=== PATIENT | male | born 1965 | race American Indian/Alaskan Native ===

== ENCOUNTER 2020-04-17 13:06 | Inpatient (IN) | payer OTHER ==
[2020-04-17] MEDS ORDERED: ONDANSETRON 4 MG/2 ML INJ IV ONE (13:58)
[2020-04-17] MEDS ORDERED: MORPHINE 2 MG/1 ML INJ IV ONE (13:58)
--- NOTE | 2020-04-17 14:39 | Emergency Department Report ---
ED General Adult HPI - General Chief complaint: Back Pain/Injury Stated complaint: FALL INJURY/BACK PAIN Time Seen by Provider: 04/17/20 13:44 Source: patient Mode of arrival: Stretcher Limitations: No Limitations - History of Present Illness Initial comments: This is a 55-year-old man with a history of CHF and hypertension. He states he tripped over his cat. He states he missed 1 dose of his medicine this morning. He fell onto his back and complains of pain in his left posterior some scapular chest region. He denies any vertebral pain both of the cervical and thoracic spine. He does not complain of lower back pain or flank pain at all. Patient is dyspneic on arrival. He complains of moderately severe pain. He is is very reticent to provide any historical information or even answer questions. -: Sudden Location: chest (Left posterior as above indicated) Radiation: non-radiation Quality: aching Consistency: constant Improves with: none Worsens with: none Associated Symptoms: cough, shortness of breath Treatments Prior to Arrival: none - Related Data Allergies Allergy/AdvReac Type Severity Reaction Status Date / Time Penicillins Allergy Anaphylaxis Verified 04/17/20 14:56 ED Review of Systems ROS: Stated complaint: FALL INJURY/BACK PAIN Other details as noted in HPI Comment: Unobtainable due to pts medical conditions (Very limited secondary to lack of patient cooperation) Constitutional: denies: chills, fever Respiratory: denies: cough, shortness of breath Cardiovascular: denies: chest pain Endocrine: no symptoms reported Gastrointestinal: denies: abdominal pain Musculoskeletal: as per HPI Skin: denies: rash, lesions Neurological: denies: headache ED Past Medical Hx - Past Medical History Previous Medical History?: Yes Hx Hypertension: Yes - Social History Smoking Status: Current Some Day Smoker Substance Use Type: None ED Physical Exam - General Limitations: Physical Limitation General appearance: anxious, other (Poorly cooperative) - Head Head exam: Present: atraumatic - Eye Eye exam: Absent: scleral icterus - ENT ENT exam: Present: mucous membranes moist - Neck Neck exam: Absent: tenderness, meningismus - Respiratory Respiratory exam: Present: rhonchi - Cardiovascular Cardiovascular Exam: Present: tachycardia - GI/Abdominal GI/Abdominal exam: Present: soft, normal bowel sounds. Absent: distended, tenderness, guarding, rebound, rigid - Extremities Exam Extremities exam: Present: other (1-2+ bilateral pretibial edema) - Back Exam Back exam: Present: tenderness. Absent: CVA tenderness (R), CVA tenderness (L), muscle spasm, paraspinal tenderness, vertebral tenderness - Neurological Exam Neurological exam: Present: CN II-XII intact (As testable). Absent: motor sensory deficit - Psychiatric Psychiatric exam: Present: agitated, anxious - Skin Skin exam: Present: warm, dry, intact, normal color. Absent: rash ED Course Vital Signs 04/17/20 04/17/20 04/17/20 13:29 14:14 14:15 Temperature 97.8 F Pulse Rate 101 H 103 H Respiratory 18 18 Rate Blood Pressure 170/113 187/130 Blood Pressure [Right] O2 Sat by Pulse 98 Oximetry 04/17/20 15:08 Temperature Pulse Rate Respiratory 18 Rate Blood Pressure Blood Pressure 156/110 [Right] O2 Sat by Pulse 99 Oximetry - Reevaluation(s) Reevaluation #1: Blood cultures are ordered. Patient given empiric antibiotics. Labetalol 10 mg now x2. Lasix 40 IV. His D-dimer is quite elevated. His proBNP is quite elevated. His blood pressure is quite elevated. I think this is a hypertensive emergency with CHF and that Covid is not unlikely. Isolation was ordered. I will defer further work-up to the hospitalist staff. Anticoagulation protocol and the use of steroids will be left to the discretion of the hospitalist. 04/17/20 15:09 04/17/20 15:10 ED Medical Decision Making - Lab Data Result diagrams: 04/17/20 14:18 04/17/20 14:18 Laboratory Results - last 24 hr 04/17/20 04/17/20 04/17/20 14:18 14:18 14:18 WBC 12.5 H RBC 3.93 Hgb 13.3 Hct 40.3 MCV 103 H MCH 34 H MCHC 33 RDW 14.4 Plt Count 223 Lymph % (Auto) 7.6 L [place] % (Auto) 4.0 Eos % (Auto) 0.4 Baso % (Auto) 1.1 Lymph # (Auto) 0.9 L [place] # (Auto) 0.5 Eos # (Auto) 0.0 Baso # (Auto) 0.1 Seg Neutrophils % 86.9 H Seg Neutrophils # 10.9 H PT 13.3 INR 1.03 APTT 29.2 D-Dimer 1815.52 H Sodium 139 Potassium 4.5 Chloride 106.1 Carbon Dioxide 23 Anion Gap 14 BUN 9 Creatinine 0.8 Estimated GFR > 60 BUN/Creatinine Ratio 11 Glucose 118 H Lactic Acid Calcium 9.1 Magnesium 2.10 Lactate Dehydrogenase Total Creatine Kinase 200 H CK-MB (CK-2) 4.2 H CK-MB (CK-2) Rel Index 2.1 Troponin T < 0.010 C-Reactive Protein NT-Pro-B Natriuret Pep Urine Color Urine Turbidity Urine pH Ur Specific [place] Urine Protein Urine Glucose (UA) Urine Ketones Urine Blood Urine Nitrite Urine Bilirubin Urine Urobilinogen Ur Leukocyte Esterase Urine WBC (Auto) Urine RBC (Auto) Urine Opiates Screen Urine Methadone Screen Ur Barbiturates Screen Ur Phencyclidine Scrn Ur Amphetamines Screen U Benzodiazepines Scrn Urine Cocaine Screen 04/17/20 04/17/20 04/17/20 14:18 14:18 14:23 WBC RBC Hgb Hct MCV MCH MCHC RDW Plt Count Lymph % (Auto) [place] % (Auto) Eos % (Auto) Baso % (Auto) Lymph # (Auto) [place] # (Auto) Eos # (Auto) Baso # (Auto) Seg Neutrophils % Seg Neutrophils # PT INR APTT D-Dimer Sodium Potassium Chloride Carbon Dioxide Anion Gap BUN Creatinine Estimated GFR BUN/Creatinine Ratio Glucose Lactic Acid 2.10 H* Calcium Magnesium Lactate Dehydrogenase 337 H Total Creatine Kinase CK-MB (CK-2) CK-MB (CK-2) Rel Index Troponin T C-Reactive Protein 0.10 NT-Pro-B Natriuret Pep 3899 H Urine Color Urine Turbidity Urine pH Ur Specific [place] Urine Protein Urine Glucose (UA) Urine Ketones Urine Blood Urine Nitrite Urine Bilirubin Urine Urobilinogen Ur Leukocyte Esterase Urine WBC (Auto) Urine RBC (Auto) Urine Opiates Screen Urine Methadone Screen Ur Barbiturates Screen Ur Phencyclidine Scrn Ur Amphetamines Screen U Benzodiazepines Scrn Urine Cocaine Screen 04/17/20 04/17/20 14:51 14:51 WBC RBC Hgb Hct MCV MCH MCHC RDW Plt Count Lymph % (Auto) [place] % (Auto) Eos % (Auto) Baso % (Auto) Lymph # (Auto) [place] # (Auto) Eos # (Auto) Baso # (Auto) Seg Neutrophils % Seg Neutrophils # PT INR APTT D-Dimer Sodium Potassium Chloride Carbon Dioxide Anion Gap BUN Creatinine Estimated GFR BUN/Creatinine Ratio Glucose Lactic Acid Calcium Magnesium Lactate Dehydrogenase Total Creatine Kinase CK-MB (CK-2) CK-MB (CK-2) Rel Index Troponin T C-Reactive Protein NT-Pro-B Natriuret Pep Urine Color Yellow Urine Turbidity Clear Urine pH 7.0 Ur Specific [place] 1.014 Urine Protein <15 mg/dl Urine Glucose (UA) Neg Urine Ketones Neg Urine Blood Neg Urine Nitrite Neg Urine Bilirubin Neg Urine Urobilinogen < 2.0 Ur Leukocyte Esterase Neg Urine WBC (Auto) < 1.0 Urine RBC (Auto) 1.0 Urine Opiates Screen Negative Urine Methadone Screen Negative Ur Barbiturates Screen Negative Ur Phencyclidine Scrn Negative Ur Amphetamines Screen Negative U Benzodiazepines Scrn Negative Urine Cocaine Screen Negative - EKG Data -: EKG Interpreted by Me EKG shows normal: sinus rhythm, axis, intervals, ST-T waves Rate: normal - EKG Data Interpretation: LVH (, Left atrial enlargement, nonspecific changes somewhat prolonged QT) - Radiology Data Radiology results: report reviewed, image reviewed IMPRESSION: 1. Nonspecific bilateral pulmonary opacities could represent edema or pneumonia. Continued radiographic follow-up to resolution is recommended. 2. Mild cardiomegaly. There is propensity to the lower lobes. I suspect this is Covid plus CHF. Critical care attestation.: If time is entered above; I have spent that time in minutes in the direct care of this critically ill patient, excluding procedure time. ED Disposition Clinical Impression: Respiratory distress, Hypertensive emergency, Elevated d-dimer, Person under investigation for COVID-19 Fall Qualifiers: Encounter type: initial encounter Qualified Code(s): W19.XXXA - Unspecified fall, initial encounter CHF (congestive heart failure) Qualifiers: Heart failure type: combined systolic and diastolic Heart failure chronicity: acute on chronic Qualified Code(s): I50.43 - Acute on chronic combined systolic (congestive) and diastolic (congestive) heart failure Disposition: OP ADMIT IP TO THIS HOSP Is pt being admited?: Yes Does the pt Need Aspirin: Yes Condition: Stable Instructions: Hypertension (ED) Referrals: PRIMARY CARE, [Primary Care Provider] - 3-5 Days Time of Disposition: 15:15
[2020-04-17 14:41] LABS: Basophils # (Auto) 0.1 K/mm3 (0.0-0.1); Basophils % (Auto) 1.1 % (0.0-1.8); Eosinophils % (Auto) 0.4 % (0.0-4.3); Hematocrit 40.3 % (35.5-45.6); Hemoglobin 13.3 gm/dl (11.8-15.2); Lymphocytes # (Auto) 0.9 K/mm3 (1.2-5.4); Lymphocytes % (Auto) 7.6 % (13.4-35.0); Mean Corpuscular HGB Conc 33 % (32-34); Mean Corpuscular Volume 103 fl (84-94); Monocytes # (Auto) 0.5 K/mm3 (0.0-0.8); Platelet Count 223 K/mm3 (140-440); Red Blood Count 3.93 M/mm3 (3.65-5.03); Red Cell Distribution Width 14.4 % (13.2-15.2)
--- NOTE | 2020-04-17 14:41 | XRay Report ---
CHEST 1 VIEW 04/17/2020 1:32 PM INDICATION / CLINICAL INFORMATION: hypertension. COMPARISON: None available. FINDINGS: SUPPORT DEVICES: None. HEART / MEDIASTINUM: Mildly enlarged cardiac silhouette. LUNGS / PLEURA: There are generalized bilateral pulmonary opacities, most notable along the right robert g base. No significant pleural effusion. No pneumothorax. ADDITIONAL FINDINGS: No significant additional findings. IMPRESSION: 1. Nonspecific bilateral pulmonary opacities could represent edema or pneumonia. Continued radiograph ic follow-up to resolution is recommended. 2. Mild cardiomegaly. Signer Name: Mustapha Corley MD Signed: 04/17/2020 2:36 PM Workstation Name: [id number]
[2020-04-17 14:49] LABS: INR 1.03 (0.87-1.13); Partial Thromboplastin Time 29.2 Sec. (24.2-36.6)
[2020-04-17] MEDS ORDERED: AZITHROMYCIN/NS 500 MG/250 ML 500 MG/250 ML BAG IV ONE (14:56)
[2020-04-17] MEDS ORDERED: MEROPENEM/NS 1 GRAM/100 ML 1 GRAM/100 ML BAG IV ONE (14:57)
[2020-04-17 14:59] LABS: Bilirubin,Urine NEG (Negative); Blood,Urine NEG (Negative); Color,Urine Yellow (Yellow); Protein,Urine <15 mg/dL mg/dL (Negative); Urobilinogen,Urine < 2.0 mg/dL (<2.0); WBC,Urine < 1.0 /HPF (0.0-6.0)
[2020-04-17] MEDS ORDERED: ASPIRIN 325 MG TAB PO ONE (15:00)
[2020-04-17 15:05] LABS: Creatine Kinase MB 4.2 ng/mL (0.0-4.0)
[2020-04-17 15:06] LABS: Amphetamine Screen,Urine Negative; Benzodiazepines Screen,Urine Negative; Cocaine Screen,Urine Negative; Methadone Screen,Urine Negative; Opiate Screen,Urine Negative
[2020-04-17 15:06] LABS: BUN/Creatinine Ratio 11; Blood Urea Nitrogen 9 mg/dL (9-20); Calcium 9.1 mg/dL (8.4-10.2); Hemolysis Index 45
[2020-04-17 15:06] LABS: C-Reactive Protein 0.1 mg/dL (0.00-1.30)
[2020-04-17 15:08] LABS: Albumin 4.3 g/dL (3.9-5); Bilirubin,Direct 0.3 mg/dL (0-0.2)
[2020-04-17] MEDS ORDERED: FUROSEMIDE 40 MG/4 ML INJ IV ONE (15:08)
[2020-04-17] MEDS ORDERED: IPRATROPIUM/ALBUTEROL SULFATE 3 ML AMPUL.NEB IH ONE (15:12)
[2020-04-17 15:34] LABS: Cannabinoid Screen,Urine Positive
--- NOTE | 2020-04-17 21:30 | History and Physical Report ---
History of Present Illness Date of examination: 04/17/20 Date of admission: 04/17/20 15:16 Chief complaint: Fall and Sob History of present illness: 55-year-old man with a history of CHF and hypertension. He states he tripped over his cat. He states he missed 1 dose of his medicine this morning. He fell onto his back and complains of pain in his left posterior some scapular chest region. He denies any vertebral pain both of the cervical and thoracic spine. He does not complain of lower back pain or flank pain at all. Patient is dyspneic on arrival. He complains of moderately severe pain all over.Poor historian.IN ED BP was very high.And w/u revealed Pulmonary vascular congestion - Past Medical History Previous Medical History?: Yes --Hypertension: Yes --CHF Surg Hx N/a - Social History Smoking Status: Current Some Day Smoker Substance Use Type: None Family History Htn Review of Systems ROS: Stated complaint: FALL INJURY/BACK PAIN Other details as noted in HPI Comment: Unobtainable due to pts medical conditions (Very limited secondary to lack of patient cooperation) Constitutional: denies: chills, fever Respiratory: denies: cough, shortness of breath Cardiovascular: denies: chest pain Endocrine: no symptoms reported Gastrointestinal: denies: abdominal pain Musculoskeletal: as per HPI Skin: denies: rash, lesions Neurological: denies: headache Medications and Allergies Allergies Allergy/AdvReac Type Severity Reaction Status Date / Time Penicillins Allergy Anaphylaxis Verified 04/17/20 14:56 Exam - Constitutional Vitals: Temp Pulse Resp BP Pulse Ox 97.8 F 79 14 142/96 98 04/17/20 13:29 04/17/20 18:02 04/17/20 15:30 04/17/20 18:02 04/17/20 18:02 General appearance: Present: no acute distress, well-nourished - EENT Eyes: Present: PERRL ENT: hearing intact, clear oral mucosa - Neck Neck: Present: supple, normal ROM - Respiratory Respiratory effort: normal Respiratory: bilateral: CTA, rales (scattered) - Cardiovascular Heart rate: 78 Rhythm: regular Heart Sounds: Present: S1 & S2. Absent: rub, click - Extremities Extremities: pulses symmetrical, No edema Peripheral Pulses: within normal limits - Abdominal General gastrointestinal: Present: soft, non-tender, non-distended, normal bowel sounds Male genitourinary: Present: normal - Integumentary Integumentary: Present: clear, warm, dry - Musculoskeletal Musculoskeletal: gait normal, strength equal bilaterally - Psychiatric Psychiatric: appropriate mood/affect, intact judgment & insight - Neurologic Neurologic: CNII-XII intact, moves all extremities HEART Score - HEART Score History: Moderately suspicious EKG: Non-specific Age: 45-65 Risk factors: 1-2 risk factors Troponin: Troponin T < 0.010 ng/mL (0.00-0.029) 04/17/20 14:18 Troponin: < normal limit HEART Score: 4 - Critical Actions Critical Actions: 0-3 pts:0.9-1.7%risk of adverse cardiac event.Candidate for discharge Results - Labs CBC & Chem 7: 04/18/20 05:01 04/18/20 05:01 Labs: Laboratory Last Values WBC 12.5 K/mm3 (4.5-11.0) H 04/17/20 14:18 RBC 3.93 M/mm3 (3.65-5.03) 04/17/20 14:18 Hgb 13.3 gm/dl (11.8-15.2) 04/17/20 14:18 Hct 40.3 % (35.5-45.6) 04/17/20 14:18 MCV 103 fl (84-94) H 04/17/20 14:18 MCH 34 pg (28-32) H 04/17/20 14:18 MCHC 33 % (32-34) 04/17/20 14:18 RDW 14.4 % (13.2-15.2) 04/17/20 14:18 Plt Count 223 K/mm3 (140-440) 04/17/20 14:18 Lymph % (Auto) 7.6 % (13.4-35.0) L 04/17/20 14:18 [place] % (Auto) 4.0 % (0.0-7.3) 04/17/20 14:18 Eos % (Auto) 0.4 % (0.0-4.3) 04/17/20 14:18 Baso % (Auto) 1.1 % (0.0-1.8) 04/17/20 14:18 Lymph # (Auto) 0.9 K/mm3 (1.2-5.4) L 04/17/20 14:18 [place] # (Auto) 0.5 K/mm3 (0.0-0.8) 04/17/20 14:18 Eos # (Auto) 0.0 K/mm3 (0.0-0.4) 04/17/20 14:18 Baso # (Auto) 0.1 K/mm3 (0.0-0.1) 04/17/20 14:18 Seg Neutrophils % 86.9 % (40.0-70.0) H 04/17/20 14:18 Seg Neutrophils # 10.9 K/mm3 (1.8-7.7) H 04/17/20 14:18 PT 13.3 Sec. (12.2-14.9) 04/17/20 14:18 INR 1.03 (0.87-1.13) 04/17/20 14:18 APTT 29.2 Sec. (24.2-36.6) 04/17/20 14:18 D-Dimer 1815.52 ng/mlDDU (0-234) H 04/17/20 14:18 Sodium 139 mmol/L (137-145) 04/17/20 14:18 Potassium 4.5 mmol/L (3.6-5.0) 04/17/20 14:18 Chloride 106.1 mmol/L (98-107) 04/17/20 14:18 Carbon Dioxide 23 mmol/L (22-30) 04/17/20 14:18 Anion Gap 14 mmol/L 04/17/20 14:18 BUN 9 mg/dL (9-20) 04/17/20 14:18 Creatinine 0.8 mg/dL (0.8-1.3) 04/17/20 14:18 Estimated GFR > 60 ml/min 04/17/20 14:18 BUN/Creatinine Ratio 11 % 04/17/20 14:18 Glucose 118 mg/dL (75-100) H 04/17/20 14:18 Lactic Acid 2.10 mmol/L (0.7-2.0) H* 04/17/20 14:18 Calcium 9.1 mg/dL (8.4-10.2) 04/17/20 14:18 Magnesium 2.10 mg/dL (1.7-2.3) 04/17/20 14:18 Ferritin 80.4 ng/mL (30.0-300.0) 04/17/20 14:23 Total Bilirubin 0.90 mg/dL (0.1-1.2) 04/17/20 14:18 Direct Bilirubin 0.3 mg/dL (0-0.2) H 04/17/20 14:18 Indirect Bilirubin 0.6 mg/dL 04/17/20 14:18 AST 36 units/L (5-40) 04/17/20 14:18 ALT 38 units/L (7-56) 04/17/20 14:18 Alkaline Phosphatase 75 units/L (35-129) 04/17/20 14:18 Lactate Dehydrogenase 337 units/L (91-180) H 04/17/20 14:23 Total Creatine Kinase 200 units/L (55-170) H 04/17/20 14:18 CK-MB (CK-2) 4.2 ng/mL (0.0-4.0) H 04/17/20 14:18 CK-MB (CK-2) Rel Index 2.1 (0-4) 04/17/20 14:18 Troponin T < 0.010 ng/mL (0.00-0.029) 04/17/20 14:18 C-Reactive Protein 0.10 mg/dL (0.00-1.30) 04/17/20 14:23 NT-Pro-B Natriuret Pep 3899 pg/mL (0-900) H 04/17/20 14:18 Total Protein 7.7 g/dL (6.3-8.2) 04/17/20 14:18 Albumin 4.3 g/dL (3.9-5) 04/17/20 14:18 Albumin/Globulin Ratio 1.3 % 04/17/20 14:18 Urine Color Yellow (Yellow) 04/17/20 14:51 Urine Turbidity Clear (Clear) 04/17/20 14:51 Urine pH 7.0 (5.0-7.0) 04/17/20 14:51 Ur Specific [place] 1.014 (1.003-1.030) 04/17/20 14:51 Urine Protein <15 mg/dl mg/dL (Negative) 04/17/20 14:51 Urine Glucose (UA) Neg mg/dL (Negative) 04/17/20 14:51 Urine Ketones Neg mg/dL (Negative) 04/17/20 14:51 Urine Blood Neg (Negative) 04/17/20 14:51 Urine Nitrite Neg (Negative) 04/17/20 14:51 Urine Bilirubin Neg (Negative) 04/17/20 14:51 Urine Urobilinogen < 2.0 mg/dL (<2.0) 04/17/20 14:51 Ur Leukocyte Esterase Neg (Negative) 04/17/20 14:51 Urine WBC (Auto) < 1.0 /HPF (0.0-6.0) 04/17/20 14:51 Urine RBC (Auto) 1.0 /HPF (0.0-6.0) 04/17/20 14:51 Urine Opiates Screen Negative 04/17/20 14:51 Urine Methadone Screen Negative 04/17/20 14:51 Ur Barbiturates Screen Negative 04/17/20 14:51 Ur Phencyclidine Scrn Negative 04/17/20 14:51 Ur Amphetamines Screen Negative 04/17/20 14:51 U Benzodiazepines Scrn Negative 04/17/20 14:51 Urine Cocaine Screen Negative 04/17/20 14:51 U Marijuana (THC) Screen Positive 04/17/20 14:51 Drugs of Abuse Note Disclamer 04/17/20 14:51 Short CBC 04/17/20 Range/Units 14:18 WBC 12.5 H (4.5-11.0) K/mm3 Hgb 13.3 (11.8-15.2) gm/dl Hct 40.3 (35.5-45.6) % Plt Count 223 (140-440) K/mm3 BMP 04/17/20 14:18 Sodium 139 Potassium 4.5 Chloride 106.1 Carbon Dioxide 23 BUN 9 Creatinine 0.8 Glucose 118 H Calcium 9.1 Cardiac Enzymes 04/17/20 Range/Units 14:18 Total Creatine Kinase 200 H (55-170) units/L CK-MB (CK-2) 4.2 H (0.0-4.0) ng/mL Troponin T < 0.010 (0.00-0.029) ng/mL Liver Function 04/17/20 Range/Units 14:18 Total Bilirubin 0.90 (0.1-1.2) mg/dL Direct Bilirubin 0.3 H (0-0.2) mg/dL AST 36 (5-40) units/L ALT 38 (7-56) units/L Alkaline Phosphatase 75 (35-129) units/L Albumin 4.3 (3.9-5) g/dL Urine 04/17/20 Range/Units 14:51 Urine Color Yellow (Yellow) Urine pH 7.0 (5.0-7.0) Ur Specific [place] 1.014 (1.003-1.030) Urine Protein <15 mg/dl (Negative) mg/dL Urine Glucose (UA) Neg (Negative) mg/dL Short CBC 04/17/20 04/18/20 Range/Units 14:18 05:01 WBC 12.5 H 8.9 (4.5-11.0) K/mm3 Hgb 13.3 12.1 (11.8-15.2) gm/dl Hct 40.3 36.1 (35.5-45.6) % Plt Count 223 166 (140-440) K/mm3 BMP 04/17/20 04/18/20 14:18 05:01 Sodium 139 138 Potassium 4.5 4.4 Chloride 106.1 105.5 Carbon Dioxide 23 27 BUN 9 13 Creatinine 0.8 0.8 Glucose 118 H 99 Calcium 9.1 8.5 Cardiac Enzymes 04/17/20 Range/Units 14:18 Total Creatine Kinase 200 H (55-170) units/L CK-MB (CK-2) 4.2 H (0.0-4.0) ng/mL Troponin T < 0.010 (0.00-0.029) ng/mL Liver Function 04/17/20 04/18/20 Range/Units 14:18 05:01 Total Bilirubin 0.90 0.60 (0.1-1.2) mg/dL Direct Bilirubin 0.3 H (0-0.2) mg/dL AST 36 23 (5-40) units/L ALT 38 26 (7-56) units/L Alkaline Phosphatase 75 57 (35-129) units/L Albumin 4.3 3.6 L (3.9-5) g/dL Urine 04/17/20 Range/Units 14:51 Urine Color Yellow (Yellow) Urine pH 7.0 (5.0-7.0) Ur Specific [place] 1.014 (1.003-1.030) Urine Protein <15 mg/dl (Negative) mg/dL Urine Glucose (UA) Neg (Negative) mg/dL Microbiology: Microbiology 04/17/20 15:12 Peripheral/Venous Blood Culture - Preliminary Culture in Progress 04/17/20 15:12 Peripheral/Venous Blood Culture - Preliminary Culture in Progress - Imaging and Cardiology Imaging and Cardiology: CXR SUPPORT DEVICES: None. HEART / MEDIASTINUM: Mildly enlarged cardiac silhouette. LUNGS / PLEURA: There are generalized bilateral pulmonary opacities, most notable along the right lung base. No significant pleural effusion. No pneumothorax. ADDITIONAL FINDINGS: No significant additional findings. IMPRESSION: 1. Nonspecific bilateral pulmonary opacities could represent edema or pneumonia. Continued radiographic follow-up to resolution is recommended. 2. Mild cardiomegaly. Assessment and Plan Advance Directives: Yes (Full code) VTE prophylaxis?: Chemical Plan of care discussed with patient/family: Yes - Patient Problems (1) Acute exacerbation of CHF (congestive heart failure) Current Visit: Yes Status: Acute Qualifiers: Heart failure type: combined systolic and diastolic Qualified Code(s): I50.43 - Acute on chronic combined systolic (congestive) and diastolic (congestive) heart failure Plan to address problem: Clinical picture c/w CHF exacerbation IV Lasix for now Echo for EF Daily wts Cardiology consult Covid in differential (2) Hypertensive emergency Current Visit: Yes Status: Acute Plan to address problem: Started on Valsartan and COreg and IV Hydralazine Prn q3h (3) Elevated d-dimer Current Visit: Yes Status: Acute Plan to address problem: Non specific On Lovenox (4) Person under investigation for COVID-19 Current Visit: Yes Status: Acute Plan to address problem: Stone virus pcr pending Unlikely ID consult if necessary (5) DVT prophylaxis Current Visit: Yes Status: Acute Plan to address problem: Lovenox and GI prophylaxis
[2020-04-17] MEDS ORDERED: METOCLOPRAMIDE 10 MG/2 ML INJ IV PRN (21:39)
[2020-04-17] MEDS ORDERED: ACETAMINOPHEN 325 MG TAB PO PRN (21:39)
[2020-04-17] MEDS ORDERED: ONDANSETRON 4 MG/2 ML INJ IV PRN (21:39)
[2020-04-17] MEDS ORDERED: HYDROmorphone 1 MG/1 ML INJ IV PRN (21:39)
[2020-04-17] MEDS ORDERED: hydrALAZINE 20 MG/1 ML INJ IV PRN (21:53)
[2020-04-17] MEDS: oxyCODONE /ACETAMINOPHEN 5-325MG TAB PO PRN (22:12)
[2020-04-17] MEDS: POTASSIUM CHLORIDE ER 20 MEQ TAB PO SCH (22:12)
[2020-04-17] MEDS: FAMOTIDINE 20 MG TAB PO SCH (22:13)
[2020-04-17] MEDS: carvediloL 12.5 MG TAB PO SCH (22:41)
[2020-04-17] MEDS: VALSARTAN 160MG TAB PO SCH (22:41)
[2020-04-18] MEDS: FUROSEMIDE 40 MG/4 ML INJ IV SCH ×2 (05:16→20:10)
[2020-04-18 05:48] LABS: Basophils # (Auto) 0.1 K/mm3 (0.0-0.1); Basophils % (Auto) 1.3 % (0.0-1.8); Eosinophils # (Auto) 0.2 K/mm3 (0.0-0.4); Eosinophils % (Auto) 2.1 % (0.0-4.3); Hematocrit 36.1 % (35.5-45.6); Hemoglobin 12.1 gm/dl (11.8-15.2); Lymphocytes # (Auto) 1.5 K/mm3 (1.2-5.4); Lymphocytes % (Auto) 16.7 % (13.4-35.0); Mean Corpuscular HGB Conc 34 % (32-34); Mean Corpuscular Volume 103 fl (84-94); Monocytes # (Auto) 0.7 K/mm3 (0.0-0.8); Monocytes % (Auto) 8.2 % (0.0-7.3); Platelet Count 166 K/mm3 (140-440); Red Blood Count 3.49 M/mm3 (3.65-5.03); Red Cell Distribution Width 14.1 % (13.2-15.2)
[2020-04-18 06:13] LABS: Alanine Aminotransferase 26 units/L (7-56); Albumin 3.6 g/dL (3.9-5); BUN/Creatinine Ratio 16; Blood Urea Nitrogen 13 mg/dL (9-20); Calcium 8.5 mg/dL (8.4-10.2); Hemolysis Index 0
[2020-04-18] MEDS: FAMOTIDINE 20 MG TAB PO SCH ×2 (09:02→21:42)
[2020-04-18] MEDS: carvediloL 12.5 MG TAB PO SCH ×2 (09:02→21:41)
[2020-04-18] MEDS: POTASSIUM CHLORIDE ER 20 MEQ TAB PO SCH ×2 (09:02→21:41)
[2020-04-18] MEDS: VALSARTAN 160MG TAB PO SCH ×2 (09:02→21:42)
--- NOTE | 2020-04-18 10:03 | Progress Note ---
Assessment and Plan Assessment and plan: 55-year-old man with a history of CHF and hypertension. He states he tripped over his cat. He states he missed 1 dose of his medicine this morning. He fell onto his back and complains of pain in his left posterior some scapular chest region. He denies any vertebral pain both of the cervical and thoracic spine. He does not complain of lower back pain or flank pain at all. Patient is dyspneic on arrival. He complains of moderately severe pain all over.Poor historian.IN ED BP was very high.And w/u revealed Pulmonary vascular congestion CXR 1. Nonspecific bilateral pulmonary opacities could represent edema or pneumonia. Continued radiographic follow-up to resolution is recommended. 2. Mild cardiomegaly. 04/18: Patient seen and examined, remains with shortness of breath, and complaints of back pain. Check CTA chest to ensure no Pulmonary embolisim. Counselling for 15 mins on tobacco and Etoh use, patient verbalized understanding. pain control, start on Duonebs. Discussed with Nursing staff to update home meds. Home oxygen eval Advised to have a PFT outpatient to evaluate for underlying COPD. Assessment and Plan (1) Acute exacerbation of CHF (congestive heart failure) Current Visit: Yes Status: Acute Qualifiers: Heart failure type: combined systolic and diastolic Qualified Code(s): I50.43 - Acute on chronic combined systolic (congestive) and diastolic (congestive) heart failure Plan to address problem: Clinical picture c/w CHF exacerbation IV Lasix for now Echo for EF Daily wts Cardiology consult Covid in differential (2) Hypertensive emergency Current Visit: Yes Status: Acute Plan to address problem: Started on Valsartan and COreg and IV Hydralazine Prn q3h (3) Elevated d-dimer Current Visit: Yes Status: Acute Plan to address problem: Non specific On Lovenox (4) Person under investigation for COVID-19 Current Visit: Yes Status: Acute Plan to address problem: Stone virus pcr pending Unlikely ID consult if necessary (5) Tobacco Use (6) DVT prophylaxis Current Visit: Yes Status: Acute Plan to address problem: Lovenox and GI prophylaxis History Interval history: Patient seen and examined, resting but with complaints of back pain which he says was from a Sneeze. Hospitalist Physical - Constitutional Vitals: Temp Pulse Resp BP Pulse Ox 97.9 F 75 20 146/99 100 02/15/21 05:08 04/18/20 09:02 04/18/20 05:08 04/18/20 09:02 04/18/20 05:08 General appearance: Present: mild distress, well-nourished - EENT Eyes: Present: PERRL, EOM intact ENT: clear oral mucosa - Neck Neck: Present: supple, normal ROM - Respiratory Respiratory effort: normal Respiratory: bilateral: diminished - Cardiovascular Rhythm: regular Heart Sounds: Present: S1 & S2. Absent: systolic murmur, diastolic murmur - Extremities Extremities: no ischemia, pulses intact, pulses symmetrical, No edema, normal temperature, normal color, Full ROM Peripheral Pulses: within normal limits - Abdominal General gastrointestinal: soft, non-tender, non-distended, normal bowel sounds - Integumentary Integumentary: Present: clear, warm, dry - Psychiatric Psychiatric: appropriate mood/affect, intact judgment & insight, memory intact, cooperative - Neurologic Neurologic: CNII-XII intact, moves all extremities - Allied Health Allied health notes reviewed: nursing HEART Score - HEART Score EKG: Non-specific Age: 45-65 Risk factors: 1-2 risk factors Troponin: Troponin T < 0.010 ng/mL (0.00-0.029) 04/17/20 14:18 Troponin: < normal limit - Critical Actions Critical Actions: 0-3 pts:0.9-1.7%risk of adverse cardiac event.Candidate for discharge Results - Labs CBC & Chem 7: 04/18/20 05:01 04/18/20 05:01 Labs: Laboratory Last Values WBC 8.9 K/mm3 (4.5-11.0) 04/18/20 05:01 RBC 3.49 M/mm3 (3.65-5.03) L 04/18/20 05:01 Hgb 12.1 gm/dl (11.8-15.2) 04/18/20 05:01 Hct 36.1 % (35.5-45.6) 04/18/20 05:01 MCV 103 fl (84-94) H 04/18/20 05:01 MCH 35 pg (28-32) H 04/18/20 05:01 MCHC 34 % (32-34) 04/18/20 05:01 RDW 14.1 % (13.2-15.2) 04/18/20 05:01 Plt Count 166 K/mm3 (140-440) 04/18/20 05:01 Lymph % (Auto) 16.7 % (13.4-35.0) 04/18/20 05:01 [place] % (Auto) 8.2 % (0.0-7.3) H 04/18/20 05:01 Eos % (Auto) 2.1 % (0.0-4.3) 04/18/20 05:01 Baso % (Auto) 1.3 % (0.0-1.8) 04/18/20 05:01 Lymph # (Auto) 1.5 K/mm3 (1.2-5.4) 04/18/20 05:01 [place] # (Auto) 0.7 K/mm3 (0.0-0.8) 04/18/20 05:01 Eos # (Auto) 0.2 K/mm3 (0.0-0.4) 04/18/20 05:01 Baso # (Auto) 0.1 K/mm3 (0.0-0.1) 04/18/20 05:01 Seg Neutrophils % 71.7 % (40.0-70.0) H 04/18/20 05:01 Seg Neutrophils # 6.4 K/mm3 (1.8-7.7) 04/18/20 05:01 PT 13.3 Sec. (12.2-14.9) 04/17/20 14:18 INR 1.03 (0.87-1.13) 04/17/20 14:18 APTT 29.2 Sec. (24.2-36.6) 04/17/20 14:18 D-Dimer 1815.52 ng/mlDDU (0-234) H 04/17/20 14:18 Sodium 138 mmol/L (137-145) 04/18/20 05:01 Potassium 4.4 mmol/L (3.6-5.0) 04/18/20 05:01 Chloride 105.5 mmol/L (98-107) 04/18/20 05:01 Carbon Dioxide 27 mmol/L (22-30) 04/18/20 05:01 Anion Gap 10 mmol/L 04/18/20 05:01 BUN 13 mg/dL (9-20) 04/18/20 05:01 Creatinine 0.8 mg/dL (0.8-1.3) 04/18/20 05:01 Estimated GFR > 60 ml/min 04/18/20 05:01 BUN/Creatinine Ratio 16 % 04/18/20 05:01 Glucose 99 mg/dL (75-100) 04/18/20 05:01 Hemoglobin A1c 5.0 % (4-6) 04/18/20 05:01 Lactic Acid 2.10 mmol/L (0.7-2.0) H* 04/17/20 14:18 Calcium 8.5 mg/dL (8.4-10.2) 04/18/20 05:01 Magnesium 2.10 mg/dL (1.7-2.3) 04/17/20 14:18 Ferritin 80.4 ng/mL (30.0-300.0) 04/17/20 14:23 Total Bilirubin 0.60 mg/dL (0.1-1.2) 04/18/20 05:01 Direct Bilirubin 0.3 mg/dL (0-0.2) H 04/17/20 14:18 Indirect Bilirubin 0.6 mg/dL 04/17/20 14:18 AST 23 units/L (5-40) 04/18/20 05:01 ALT 26 units/L (7-56) 04/18/20 05:01 Alkaline Phosphatase 57 units/L (35-129) 04/18/20 05:01 Lactate Dehydrogenase 337 units/L (91-180) H 04/17/20 14:23 Total Creatine Kinase 200 units/L (55-170) H 04/17/20 14:18 CK-MB (CK-2) 4.2 ng/mL (0.0-4.0) H 04/17/20 14:18 CK-MB (CK-2) Rel Index 2.1 (0-4) 04/17/20 14:18 Troponin T < 0.010 ng/mL (0.00-0.029) 04/17/20 14:18 C-Reactive Protein 0.10 mg/dL (0.00-1.30) 04/17/20 14:23 NT-Pro-B Natriuret Pep 3899 pg/mL (0-900) H 04/17/20 14:18 Total Protein 5.9 g/dL (6.3-8.2) L D 04/18/20 05:01 Albumin 3.6 g/dL (3.9-5) L 04/18/20 05:01 Albumin/Globulin Ratio 1.6 % 04/18/20 05:01 Urine Color Yellow (Yellow) 04/17/20 14:51 Urine Turbidity Clear (Clear) 04/17/20 14:51 Urine pH 7.0 (5.0-7.0) 04/17/20 14:51 Ur Specific [place] 1.014 (1.003-1.030) 04/17/20 14:51 Urine Protein <15 mg/dl mg/dL (Negative) 04/17/20 14:51 Urine Glucose (UA) Neg mg/dL (Negative) 04/17/20 14:51 Urine Ketones Neg mg/dL (Negative) 04/17/20 14:51 Urine Blood Neg (Negative) 04/17/20 14:51 Urine Nitrite Neg (Negative) 04/17/20 14:51 Urine Bilirubin Neg (Negative) 04/17/20 14:51 Urine Urobilinogen < 2.0 mg/dL (<2.0) 04/17/20 14:51 Ur Leukocyte Esterase Neg (Negative) 04/17/20 14:51 Urine WBC (Auto) < 1.0 /HPF (0.0-6.0) 04/17/20 14:51 Urine RBC (Auto) 1.0 /HPF (0.0-6.0) 04/17/20 14:51 Urine Opiates Screen Negative 04/17/20 14:51 Urine Methadone Screen Negative 04/17/20 14:51 Ur Barbiturates Screen Negative 04/17/20 14:51 Ur Phencyclidine Scrn Negative 04/17/20 14:51 Ur Amphetamines Screen Negative 04/17/20 14:51 U Benzodiazepines Scrn Negative 04/17/20 14:51 Urine Cocaine Screen Negative 04/17/20 14:51 U Marijuana (THC) Screen Positive 04/17/20 14:51 Drugs of Abuse Note Disclamer 04/17/20 14:51 Microbiology: Microbiology 04/17/20 15:12 Peripheral/Venous Blood Culture - Preliminary Culture in Progress 04/17/20 15:12 Peripheral/Venous Blood Culture - Preliminary Culture in Progress Perry/IV: Voiding Method Urinal Active Medications - Current Medications Current Medications: Generic Name Dose Route Start Last Admin Trade Name Freq PRN Reason Stop Dose Admin Acetaminophen 650 mg 04/17/20 21:39 Acetaminophen 325 Mg Tab PO Q4H PRN Pain MILD(1-3)/Fever >100.5/WOODS Carvedilol 12.5 mg 04/17/20 22:00 04/18/20 09:02 Carvedilol 12.5 Mg Tab PO 12.5 mg BID RICARDO Administration Famotidine 20 mg 04/17/20 22:00 04/18/20 09:02 Famotidine 20 Mg Tab PO 20 mg BID RICARDO Administration Furosemide 40 mg 04/18/20 06:00 04/18/20 05:16 Furosemide 40 Mg/4 Ml Inj IV 40 mg 0600,1800 RICARDO Administration Hydralazine HCl 10 mg 04/17/20 21:53 Hydralazine 20 Mg/1 Ml Inj IV Q3H PRN Blood Pressure Hydromorphone HCl 0.5 mg 04/17/20 21:39 Hydromorphone 1 Mg/1 Ml Inj IV Q3H PRN Pain , Severe (7-10) Metoclopramide HCl 10 mg 04/17/20 21:39 Metoclopramide 10 Mg/2 Ml Inj IV Q6H PRN Nausea And Vomiting Ondansetron HCl 4 mg 04/17/20 21:39 Ondansetron 4 Mg/2 Ml Inj IV Q8H PRN Nausea And Vomiting Oxycodone/Acetaminophen 1 tab 04/17/20 21:39 04/17/20 22:12 Oxycodone /Acetaminophen 5-325mg Tab PO 1 tab Q6H PRN Administration Pain, Moderate (4-6) Potassium Chloride 20 meq 04/17/20 22:00 04/18/20 09:02 Potassium Chloride Er 20 Meq Tab PO 20 meq BID RICARDO Administration Sodium Chloride 10 ml 04/17/20 22:00 04/18/20 09:04 Sodium Chloride 0.9% 10 Ml Flush Syringe IV 10 ml BID RICARDO Administration Sodium Chloride 10 ml 04/17/20 21:39 Sodium Chloride 0.9% 10 Ml Flush Syringe IV PRN PRN LINE FLUSH Valsartan 160 mg 04/17/20 22:00 04/18/20 09:02 Valsartan 160mg Tab PO 160 mg BID RICARDO Administration
[2020-04-18] MEDS ORDERED: ALBUTEROL 2.5 MG/3 ML NEBU IH PRN (11:24)
--- NOTE | 2020-04-18 11:26 | Cat Scan Report ---
CTA CHEST WITH CONTRAST INDICATION : SHORTNESS OF BREATH. TECHNIQUE: Axial imaging performed through the chest, with contrast bolus timing set to maximize opa cification of the pulmonary arteries. Sagittal and coronal reformatted images. 3-plane MIP reformatte d images were obtained. All CT scans at this location are performed using CT dose reduction for ALAR A by means of automated exposure control. 100 mL of intravenous contrast administered. COMPARISON: None FINDINGS: Bolus: Contrast bolus timing is limited with poor opacification of the distal small pulmonary arteri es. PTE: No large central pulmonary embolus is appreciated. The distal small pulmonary arteries are poor ly evaluated due to lack of contrast. Mediastinum: Mild to moderate cardiomegaly. The aorta is normal caliber. Mediastinal contents are un remarkable otherwise. No pathologic mediastinal adenopathy. Lungs: Small bilateral pleural effusions layer posteriorly. There is patchy subpleural airspace dens ities in the posterior lower lobes bilaterally. This probably represents atelectatic changes. The robert gs are clear otherwise. No pneumothorax. Minimal emphysematous changes are noted near the lung apices . Bones: Degenerative changes in the spine with nothing acute. Upper abdomen: Limited imaging of the upper abdomen shows nothing acute. IMPRESSION: Slightly limited exam to detect pulmonary embolus as described above. No large central pulmonary emb olus is appreciated. CHF. Probable bibasilar atelectatic changes. Signer Name: Abdirashid Jacob Jr, MD Signed: 04/18/2020 11:21 AM Workstation Name: [id number]
[2020-04-18] MEDS: predniSONE 20 MG TAB PO SCH (12:38)
[2020-04-18] MEDS: oxyCODONE /ACETAMINOPHEN 5-325MG TAB PO PRN ×2 (12:42→20:10)
--- NOTE | 2020-04-18 15:42 | Consultation ---
History of Present Illness Consult date: 04/18/20 Requesting physician: SHARAD SERRANO Consult reason: congestive heart failure History of present illness: The patient is a 55 year old male with a significant hx of reported HF with ?reduced EF, HTN, hx cocaine use, tobacco use. The patient is previously unknown to our practice. He presented to the ER complaining of significant midscapular back pain secondary to a ground level fall. Pt denies LOC or any precipitating factors, no chest pain, dizziness, syncope or weakness. Cardiology was consulted for HF. CXR shows pulmonary edema and enlarged heart silhouette, degenerative spinal changes. CTA is negative for PE. Covid PCR is negative. Of note, Pt reports initial diagnosis of HF in 01/2019 at [facility] where he presented with chest pain. Per patient he had echo with abnormal findings ("valve problems / fluid overload") and LHC revealing no obstruction. Pt has been noncompliant with f/u. His home meds currently include Aldactone, lasix, potassium, Coreg, and lisinopril, he reports missing one day of home meds prior to presentation. Past History Past Medical History: heart failure, hypertension, other (Hx of cocaine use) Medications and Allergies Allergies Allergy/AdvReac Type Severity Reaction Status Date / Time Penicillins Allergy Anaphylaxis Verified 04/17/20 14:56 Home Medications Medication Instructions Recorded Confirmed Last Taken Type Furosemide [Lasix TAB] 04/18/20 Unknown History Potassium 04/18/20 Unknown History Spironolactone 04/18/20 Unknown History carvediloL [Coreg] 25 mg PO BID 04/18/20 04/18/20 Unknown History lisinopriL [Zestril TAB] 40 mg PO QDAY 04/18/20 04/18/20 Unknown History Active Meds: Active Medications Acetaminophen (Acetaminophen 325 Mg Tab) 650 mg PO Q4H PRN PRN Reason: Pain MILD(1-3)/Fever >100.5/WOODS Albuterol (Albuterol 2.5 Mg/3 Ml Nebu) 2.5 mg IH Q4HRT PRN PRN Reason: Shortness Of Breath Albuterol/Ipratropium (Ipratropium/Albuterol Sulfate 3 Ml Ampul.Neb) 1 ampul IH Q8HRT RICARDO Carvedilol (Carvedilol 12.5 Mg Tab) 12.5 mg PO BID [facility] Last Admin: 04/18/20 09:02 Dose: 12.5 mg Documented by: Famotidine (Famotidine 20 Mg Tab) 20 mg PO BID [facility] Last Admin: 04/18/20 09:02 Dose: 20 mg Documented by: Furosemide (Furosemide 40 Mg/4 Ml Inj) 40 mg IV 0600,1800 [facility] Last Admin: 04/18/20 05:16 Dose: 40 mg Documented by: Hydralazine HCl (Hydralazine 20 Mg/1 Ml Inj) 10 mg IV Q3H PRN PRN Reason: Blood Pressure Hydromorphone HCl (Hydromorphone 1 Mg/1 Ml Inj) 0.5 mg IV Q3H PRN PRN Reason: Pain , Severe (7-10) Metoclopramide HCl (Metoclopramide 10 Mg/2 Ml Inj) 10 mg IV Q6H PRN PRN Reason: Nausea And Vomiting Ondansetron HCl (Ondansetron 4 Mg/2 Ml Inj) 4 mg IV Q8H PRN PRN Reason: Nausea And Vomiting Oxycodone/Acetaminophen (Oxycodone /Acetaminophen 5-325mg Tab) 1 tab PO Q6H PRN PRN Reason: Pain, Moderate (4-6) Last Admin: 04/18/20 12:42 Dose: 1 tab Documented by: Potassium Chloride (Potassium Chloride Er 20 Meq Tab) 20 meq PO BID [facility] Last Admin: 04/18/20 09:02 Dose: 20 meq Documented by: Prednisone (Prednisone 20 Mg Tab) 60 mg PO QDAY [facility] Last Admin: 04/18/20 12:38 Dose: 60 mg Documented by: Sodium Chloride (Sodium Chloride 0.9% 10 Ml Flush Syringe) 10 ml IV BID [facility] Last Admin: 04/18/20 09:04 Dose: 10 ml Documented by: Sodium Chloride (Sodium Chloride 0.9% 10 Ml Flush Syringe) 10 ml IV PRN PRN PRN Reason: LINE FLUSH Valsartan (Valsartan 160mg Tab) 160 mg PO BID [facility] Last Admin: 04/18/20 09:02 Dose: 160 mg Documented by: Review of Systems Constitutional: no weight loss, no weight gain, no fever, no chills, no sweats Ears, nose, mouth and throat: no ear pain, no ear discharge, no decreased hearing, no nose pain, no nasal congestion, no nasal discharge, no sinus pressure, no sinus pain Cardiovascular: orthopnea, high blood pressure, no chest pain, no palpitations, no rapid/irregular heart beat, no edema, no syncope, no lightheadedness Respiratory: pain on inspiration, no cough, no hemoptysis, no shortness of breath, no dyspnea on exertion Gastrointestinal: no abdominal pain, no nausea, no vomiting, no diarrhea, no constipation Genitourinary Male: no dysuria, no hematuria, no flank pain, no discharge, no urinary frequency, no urinary hesitancy Musculoskeletal: no neck stiffness, no neck pain, no shooting arm pain, no arm numbness/tingling, no low back pain, no shooting leg pain Integumentary: no rash, no pruritis, no redness, no sores, no wounds, no jaundice Neurological: no head injury, no paralysis, no weakness, no parathesias, no numbness, no tingling, no seizures, no syncope Psychiatric: no anxiety Endocrine: no cold intolerance, no heat intolerance Hematologic/Lymphatic: no easy bruising, no easy bleeding Allergic/Immunologic: no urticaria Physical Examination Last Vital Signs Temp 97.6 F 04/18/20 11:59 Pulse 75 04/18/20 11:59 Resp 18 04/18/20 11:59 BP 145/98 04/18/20 11:59 Pulse Ox 100 04/18/20 11:59 General appearance: mild distress (C/o upper back pain secondary to fall) HEENT: Positive: PERRL, Normocephaly, Mucus Membranes Moist Neck: Positive: neck supple, trachea midline Cardiac: Positive: Reg Rate and Rhythm, S1/S2, Systolic Murmur Lungs: Positive: clear to auscultation, Normal Breath Sounds, No Wheeze, Rales, Rhonchi Neuro: Positive: Grossly Intact Abdomen: Positive: Soft, Active Bowel Sounds Skin: Negative: Rash, Wound Extremities: Present: upper extr. pulses, lower extr. pulses. Absent: edema Results 04/18/20 05:01 04/18/20 05:01 Cardiac Enzymes 04/18/20 Range/Units 05:01 AST 23 (5-40) units/L CBC 04/18/20 Range/Units 05:01 WBC 8.9 (4.5-11.0) K/mm3 RBC 3.49 L (3.65-5.03) M/mm3 Hgb 12.1 (11.8-15.2) gm/dl Hct 36.1 (35.5-45.6) % Plt Count 166 (140-440) K/mm3 Lymph # (Auto) 1.5 (1.2-5.4) K/mm3 [place] # (Auto) 0.7 (0.0-0.8) K/mm3 Eos # (Auto) 0.2 (0.0-0.4) K/mm3 Baso # (Auto) 0.1 (0.0-0.1) K/mm3 Comprehensive Metabolic Panel 04/18/20 Range/Units 05:01 Sodium 138 (137-145) mmol/L Potassium 4.4 (3.6-5.0) mmol/L Chloride 105.5 (98-107) mmol/L Carbon Dioxide 27 (22-30) mmol/L BUN 13 (9-20) mg/dL Creatinine 0.8 (0.8-1.3) mg/dL Glucose 99 (75-100) mg/dL Calcium 8.5 (8.4-10.2) mg/dL AST 23 (5-40) units/L ALT 26 (7-56) units/L Alkaline Phosphatase 57 (35-129) units/L Total Protein 5.9 L D (6.3-8.2) g/dL Albumin 3.6 L (3.9-5) g/dL - Imaging and Cardiology Echo: pending EKG: pending EKG interpretations - Telemetry EKG Rhythm: Sinus Rhythm Assessment and Plan Cardiology consulted for Heart Failure. Pt reports hx of heart failure with ?reduced EF and normal LHC done at [facility] in 01/2019. These medical records have been requested. Echo pending. Continue to monitor telemetry. Agree with present cardiac regimen, including IV lasix, Coreg, Losartan. Optimize blood pressure. Further recommendations to follow, per hospital course. Pt was seen with Dr Deluna , who agrees with this assessment and plan of care. - Patient Problems (1) Acute heart failure Current Visit: Yes Status: Acute (2) Hx of cardiomyopathy Current Visit: Yes Status: Chronic Plan to address problem: Reported Hx (3) Accelerated hypertension Current Visit: Yes Status: Acute (4) History of cocaine use Current Visit: Yes Status: Chronic (5) Tobacco use Current Visit: Yes Status: Chronic (6) Back pain Current Visit: Yes Status: Acute
[2020-04-18] MEDS: IPRATROPIUM/ALBUTEROL SULFATE 3 ML AMPUL.NEB IH SCH (17:27)
[2020-04-19] MEDS: IPRATROPIUM/ALBUTEROL SULFATE 3 ML AMPUL.NEB IH SCH ×2 (01:01→08:22)
[2020-04-19] MEDS: oxyCODONE /ACETAMINOPHEN 5-325MG TAB PO PRN (01:33)
[2020-04-19] MEDS: FUROSEMIDE 40 MG/4 ML INJ IV SCH (05:44)
[2020-04-19 06:48] LABS: Hemoglobin 12.5 gm/dl (11.8-15.2); Mean Corpuscular HGB Conc 34 % (32-34); Mean Corpuscular Volume 101 fl (84-94); Platelet Count 190 K/mm3 (140-440); Red Blood Count 3.66 M/mm3 (3.65-5.03); Red Cell Distribution Width 13.7 % (13.2-15.2)
[2020-04-19 06:58] LABS: BUN/Creatinine Ratio 18; Blood Urea Nitrogen 16 mg/dL (9-20); Calcium 8.7 mg/dL (8.4-10.2); Hemolysis Index 1
[2020-04-19] MEDS: FAMOTIDINE 20 MG TAB PO SCH (10:00)
[2020-04-19] MEDS: carvediloL 12.5 MG TAB PO SCH (10:00)
[2020-04-19] MEDS: POTASSIUM CHLORIDE ER 20 MEQ TAB PO SCH (10:00)
[2020-04-19] MEDS: VALSARTAN 160MG TAB PO SCH (10:00)
[2020-04-19] MEDS: predniSONE 20 MG TAB PO SCH (10:00)
--- NOTE | 2020-04-19 10:01 | Discharge Summary ---
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 He states he tripped over his cat. He states he missed 1 dose of his medicine this morning. He fell onto his back and complains of pain in his left posterior some scapular chest region. He denies any vertebral pain both of the cervical and thoracic spine. He does not complain of lower back pain or flank pain at all. Patient is dyspneic on arrival. He complains of moderately severe pain all over.Poor historian.IN ED BP was very high.And w/u revealed Pulmonary vascular congestion CXR 1. Nonspecific bilateral pulmonary opacities could represent edema or pneumonia. Continued radiographic follow-up to resolution is recommended. 2. Mild cardiomegaly. 04/18: Patient seen and examined, remains with shortness of breath, and complaints of back pain. Check CTA chest to ensure no Pulmonary embolisim. Counselling for 15 mins on tobacco and Etoh use, patient verbalized understanding. pain control, start on Duonebs. Discussed with Nursing staff to update home meds. Home oxygen eval Advised to have a PFT outpatient to evaluate for underlying COPD. 2: patient clinically improved and stable for discharge. No chest pain, ambulating without difficuty. Will recommend follow up with cardiology and pulmonary outpatient. Discussed again need to quit tobacco use Assessment and Plan (1) Acute exacerbation of CHF (congestive heart failure) (2) Hypertensive emergency (3) Elevated d-dimer (4) Person under investigation for COVID-19- Negative (5) Tobacco Use Disposition: - TO HOME OR SELFCARE Time spent for discharge: 35 mins Core Measure Documentation - Palliative Care Palliative Care/ Comfort Measures: Not Applicable - Core Measures Any of the following diagnoses?: heart failure - Heart Failure Discharge Requirements LAUREN/ARB for LVSD if EF <40%: Yes Beta stanley at discharge: Yes Exam - Physical Exam Narrative exam: VITAL SIGNS: Reviewed. GENERAL: The patient appears normally developed, Vital signs as documented. HEAD: No signs of head trauma. EYES: Pupils are equal. Extraocular motions intact. EARS: Hearing grossly intact. MOUTH: Oropharynx is normal. NECK: No adenopathy, no JVD. CHEST: Chest with clear breath sounds bilaterally. No wheezes, rales, or rhonchi. CARDIAC: Regular rate and rhythm. S1 and S2, without murmurs, gallops, or rubs. VASCULAR: No Edema. Peripheral pulses normal and equal in all extremities. ABDOMEN: Soft, non tender and non distended. No rebound or guarding, and no masses palpated. Bowel Sounds normal. MUSCULOSKELETAL: Good range of motion of all major joints. Extremities without clubbing, cyanosis or edema. NEUROLOGIC EXAM: Alert and oriented x 3 No focal sensory or strength deficits. Speech normal. Follows commands. PSYCHIATRIC: Mood normal. SKIN: detail exam as documented in skin assessment - Constitutional Vitals: Temp Pulse Resp BP Pulse Ox 98.0 F 68 18 141/92 99 04/19/20 04:45 04/19/20 08:22 04/19/20 08:22 04/19/20 07:06 04/19/20 08:35 Plan Activity: advance as tolerated, fall precautions Diet: low fat Special Instructions: record daily weights, record daily BP diary Follow up with: PRIMARY MD ROBINSON [Primary Care Provider] - 3-5 Days MYLES JORDAN MD [Staff Physician] - 7 Days NICHOLAS ÁLVAREZ MD [Staff Physician] - 7 Days Prescriptions: Spironolactone [Aldactone] 25 mg PO QDAY #30 tablet carvediloL [Coreg] 12.5 mg PO BID #60 tablet Furosemide [Lasix] 20 mg PO BID #60 tablet Famotidine [Pepcid] 20 mg PO BID #60 tablet Potassium Chloride 10 meq PO DAILY #30 tablet.er Prednisone [predniSONE 10 mg (6-Day Pack, 21 Tabs)] 10 mg PO .TAPER #1 tab.ds.pk traMADoL [Ultram] 50 mg PO Q6HR PRN #14 tablet PRN Reason: Pain
--- NOTE | 2020-04-19 11:10 | Progress Note ---
Assessment and Plan Cardiology consulted for Heart Failure. Pt reports hx of heart failure with ?reduced EF and normal LHC done at [facility] in 01/2019. These medical records have been requested. Echo reviewed: EF 35-40%, Moderate Mitral Regurg, Global left ventricular systolic function is mild to moderately decreased, left ventricular diastolic filling pattern is restrictive. Currently stable cardiac status. Pt appears to be nearing/at euvolemia. Pt may discharge home from cardiac standpoint. At discharge, recommend PO lasix 40mg qd and continue all other present cardiac management. Follow up with Dr. Deluna in our [place] office on 05/04/2020 at 12PM Pt was seen with Dr Murphy Olmos , who agrees with this assessment and plan of care. - Patient Problems (1) HFrEF (heart failure with reduced ejection fraction) Current Visit: Yes Status: Acute (2) Cardiomyopathy Current Visit: Yes Status: Chronic Plan to address problem: Presumably non ischemic. Pt reports negative LHC in 01/2019 (3) Moderate mitral regurgitation Current Visit: Yes Status: Chronic (4) Accelerated hypertension Current Visit: Yes Status: Acute (5) History of cocaine use Current Visit: Yes Status: Chronic (6) Tobacco use Current Visit: Yes Status: Chronic (7) Back pain Current Visit: Yes Status: Acute Subjective Date of service: 04/19/20 Principal diagnosis: Heart Failure Interval history: Pt is resting comfortably in bed, alert & oriented. No new cardiac complaints. Telemetry reviewed: Sinus Rhythm HR 60, low of SB HR 45 overnight. Objective Last Vital Signs Temp 97.6 F 04/19/20 08:34 Pulse 69 04/19/20 08:34 Resp 18 04/19/20 08:34 BP 138/101 04/19/20 08:34 Pulse Ox 99 04/19/20 08:35 - Physical Examination General: Appears Well HEENT: Positive: PERRL, Normocephaly, Mucus Membranes Moist Neck: Positive: neck supple, trachea midline Cardiac: Positive: Reg Rate and Rhythm, S1/S2 Lungs: Positive: clear to auscultation, Normal Breath Sounds Neuro: Positive: Grossly Intact Abdomen: Positive: Soft, Active Bowel Sounds Skin: Negative: Rash, Wound Extremities: Present: upper extr. pulses, lower extr. pulses. Absent: edema - Labs and Meds CBC 04/19/20 Range/Units 05:38 WBC 11.0 (4.5-11.0) K/mm3 RBC 3.66 (3.65-5.03) M/mm3 Hgb 12.5 (11.8-15.2) gm/dl Hct 37.0 (35.5-45.6) % Plt Count 190 (140-440) K/mm3 Comprehensive Metabolic Panel 04/19/20 Range/Units 05:38 Sodium 136 L (137-145) mmol/L Potassium 4.8 (3.6-5.0) mmol/L Chloride 101.4 (98-107) mmol/L Carbon Dioxide 24 (22-30) mmol/L BUN 16 (9-20) mg/dL Creatinine 0.9 (0.8-1.3) mg/dL Glucose 108 H (75-100) mg/dL Calcium 8.7 (8.4-10.2) mg/dL - Imaging and Cardiology EKG: report reviewed, image reviewed Echo: report reviewed (Echo reviewed: EF 35-40%, Moderate Mitral Regurg, Global left ventricular systolic function is mild to moderately decreased, left ventricular diastolic filling pattern is restrictive. ), image reviewed - Telemetry EKG Rhythm: Sinus Rhythm - EKG Sinus rhythms and dysrhythmias: sinus rhythm
--- NOTE | 2020-04-19 12:20 | Consultation ---
History of Present Illness Consult date: 04/19/20 History of present illness: Patient discharged before I see the patient. No pulmonary consult done on this patient. Past History Past Medical History: heart failure, hypertension, other (Hx of cocaine use) Medications and Allergies Allergies Allergy/AdvReac Type Severity Reaction Status Date / Time Penicillins Allergy Anaphylaxis Verified 04/17/20 14:56 Home Medications Medication Instructions Recorded Confirmed Last Taken Type Furosemide [Lasix TAB] 04/18/20 Unknown History lisinopriL [Zestril TAB] 40 mg PO QDAY 04/18/20 04/18/20 Unknown History Famotidine [Pepcid] 20 mg PO BID #60 tablet 04/19/20 Unknown Rx Furosemide [Lasix] 20 mg PO BID #60 tablet 04/19/20 Unknown Rx Potassium Chloride 10 meq PO DAILY #30 tablet.er 04/19/20 Unknown Rx Prednisone [predniSONE 10 mg 10 mg PO .TAPER #1 tab.ds.pk 04/19/20 Unknown Rx (6-Day Pack, 21 Tabs)] Spironolactone [Aldactone] 25 mg PO QDAY #30 tablet 04/19/20 Unknown Rx carvediloL [Coreg] 12.5 mg PO BID #60 tablet 04/19/20 Unknown Rx traMADoL [Ultram] 50 mg PO Q6HR PRN #14 tablet 04/19/20 Unknown Rx Active Meds: Active Medications Acetaminophen (Acetaminophen 325 Mg Tab) 650 mg PO Q4H PRN PRN Reason: Pain MILD(1-3)/Fever >100.5/WOODS Albuterol (Albuterol 2.5 Mg/3 Ml Nebu) 2.5 mg IH Q4HRT PRN PRN Reason: Shortness Of Breath Carvedilol (Carvedilol 12.5 Mg Tab) 12.5 mg PO BID [facility] Last Admin: 04/19/20 10:00 Dose: 12.5 mg Documented by: Famotidine (Famotidine 20 Mg Tab) 20 mg PO BID [facility] Last Admin: 04/19/20 10:00 Dose: 20 mg Documented by: Furosemide (Furosemide 40 Mg/4 Ml Inj) 40 mg IV 0600,1800 [facility] Last Admin: 04/19/20 05:44 Dose: 40 mg Documented by: Hydralazine HCl (Hydralazine 20 Mg/1 Ml Inj) 10 mg IV Q3H PRN PRN Reason: Blood Pressure Hydromorphone HCl (Hydromorphone 1 Mg/1 Ml Inj) 0.5 mg IV Q3H PRN PRN Reason: Pain , Severe (7-10) Metoclopramide HCl (Metoclopramide 10 Mg/2 Ml Inj) 10 mg IV Q6H PRN PRN Reason: Nausea And Vomiting Ondansetron HCl (Ondansetron 4 Mg/2 Ml Inj) 4 mg IV Q8H PRN PRN Reason: Nausea And Vomiting Oxycodone/Acetaminophen (Oxycodone /Acetaminophen 5-325mg Tab) 1 tab PO Q6H PRN PRN Reason: Pain, Moderate (4-6) Last Admin: 04/19/20 01:33 Dose: 1 tab Documented by: Potassium Chloride (Potassium Chloride Er 20 Meq Tab) 20 meq PO Q24H [facility] Prednisone (Prednisone 20 Mg Tab) 60 mg PO QDAY [facility] Last Admin: 04/19/20 10:00 Dose: 60 mg Documented by: Sodium Chloride (Sodium Chloride 0.9% 10 Ml Flush Syringe) 10 ml IV BID [facility] Last Admin: 04/19/20 10:00 Dose: 10 ml Documented by: Sodium Chloride (Sodium Chloride 0.9% 10 Ml Flush Syringe) 10 ml IV PRN PRN PRN Reason: LINE FLUSH Valsartan (Valsartan 160mg Tab) 160 mg PO BID [facility] Last Admin: 04/19/20 10:00 Dose: 160 mg Documented by: Review of Systems All systems: negative Physical Examination Vital signs: Vital Signs Temp Pulse Resp BP Pulse Ox 97.8 F 101 H 18 170/113 98 04/17/20 13:29 04/17/20 13:29 04/17/20 13:29 04/17/20 13:29 04/17/20 13:29 Results - Laboratory Findings CBC and BMP: 04/19/20 05:38 04/19/20 05:38 PT/INR, D-dimer PT 13.3 Sec. (12.2-14.9) 04/17/20 14:18 INR 1.03 (0.87-1.13) 04/17/20 14:18 D-Dimer 1815.52 ng/mlDDU (0-234) H 04/17/20 14:18 Abnormal lab findings: Abnormal Labs 04/17/20 04/17/20 04/17/20 14:18 14:18 14:18 WBC 12.5 H RBC MCV 103 H MCH 34 H Lymph % (Auto) 7.6 L Mcminn % (Auto) Lymph # (Auto) 0.9 L Seg Neutrophils % 86.9 H Seg Neutrophils # 10.9 H D-Dimer 1815.52 H Sodium Glucose 118 H Lactic Acid Direct Bilirubin Lactate Dehydrogenase Total Creatine Kinase 200 H CK-MB (CK-2) 4.2 H NT-Pro-B Natriuret Pep Total Protein Albumin 04/17/20 04/17/20 04/17/20 14:18 14:18 14:23 WBC RBC MCV MCH Lymph % (Auto) Mcminn % (Auto) Lymph # (Auto) Seg Neutrophils % Seg Neutrophils # D-Dimer Sodium Glucose Lactic Acid 2.10 H* Direct Bilirubin 0.3 H Lactate Dehydrogenase 337 H Total Creatine Kinase CK-MB (CK-2) NT-Pro-B Natriuret Pep 3899 H Total Protein Albumin 04/18/20 04/18/20 04/19/20 05:01 05:01 05:38 WBC RBC 3.49 L MCV 103 H 101 H MCH 35 H 34 H Lymph % (Auto) Mcminn % (Auto) 8.2 H Lymph # (Auto) Seg Neutrophils % 71.7 H Seg Neutrophils # D-Dimer Sodium Glucose Lactic Acid Direct Bilirubin Lactate Dehydrogenase Total Creatine Kinase CK-MB (CK-2) NT-Pro-B Natriuret Pep Total Protein 5.9 L D Albumin 3.6 L 04/19/20 05:38 WBC RBC MCV MCH Lymph % (Auto) Mcminn % (Auto) Lymph # (Auto) Seg Neutrophils % Seg Neutrophils # D-Dimer Sodium 136 L Glucose 108 H Lactic Acid Direct Bilirubin Lactate Dehydrogenase Total Creatine Kinase CK-MB (CK-2) NT-Pro-B Natriuret Pep Total Protein Albumin - Diagnostic Findings Chest x-ray: report reviewed, image reviewed CT scan - chest: report reviewed, image reviewed Additional studies: CHEST 1 VIEW 04/17/2020 1:32 PM INDICATION / CLINICAL INFORMATION: hypertension. COMPARISON: None available. FINDINGS: SUPPORT DEVICES: None. HEART / MEDIASTINUM: Mildly enlarged cardiac silhouette. LUNGS / PLEURA: There are generalized bilateral pulmonary opacities, most notable along the right lung base. No significant pleural effusion. No pneumothorax. ADDITIONAL FINDINGS: No significant additional findings. IMPRESSION: 1. Nonspecific bilateral pulmonary opacities could represent edema or pneumonia. Continued radiographic follow-up to resolution is recommended. 2. Mild cardiomegaly. CTA CHEST WITH CONTRAST 04/17/20 INDICATION : SHORTNESS OF BREATH. TECHNIQUE: Axial imaging performed through the chest, with contrast bolus timing set to maximize opacification of the pulmonary arteries. Sagittal and coronal reformatted images. 3-plane MIP reformatted images were obtained. All CT scans at this location are performed using CT dose reduction for ALARA by means of automated exposure control. 100 mL of intravenous contrast administered. COMPARISON: None FINDINGS: Bolus: Contrast bolus timing is limited with poor opacification of the distal small pulmonary arteries. PTE: No large central pulmonary embolus is appreciated. The distal small pulmonary arteries are poorly evaluated due to lack of contrast. Mediastinum: Mild to moderate cardiomegaly. The aorta is normal caliber. Mediastinal contents are unremarkable otherwise. No pathologic mediastinal adenopathy. Lungs: Small bilateral pleural effusions layer posteriorly. There is patchy subpleural airspace densities in the posterior lower lobes bilaterally. This probably represents atelectatic changes. The lungs are clear otherwise. No pneumothorax. Minimal emphysematous changes are noted near the lung apices. Bones: Degenerative changes in the spine with nothing acute. Upper abdomen: Limited imaging of the upper abdomen shows nothing acute. IMPRESSION: Slightly limited exam to detect pulmonary embolus as described above. No large central pulmonary embolus is appreciated. CHF. Probable bibasilar atelectatic changes. Assessment and Plan - Patient Problems (1) Accelerated hypertension Status: Acute (2) Acute exacerbation of CHF (congestive heart failure) Status: Acute Qualifiers: Heart failure type: combined systolic and diastolic Qualified Code(s): I50.43 - Acute on chronic combined systolic (congestive) and diastolic (congestive) heart failure (3) Elevated d-dimer Status: Acute (4) Person under investigation for COVID-19 Status: Acute (5) Pulmonary infiltrates Status: Acute (6) History of cocaine use Status: Chronic (7) Hx of cardiomyopathy Status: Chronic (8) Tobacco use Status: Chronic
[2020-04-19 12:59] VITALS: BP 133/73
[2020-04-19] MEDS ORDERED: POTASSIUM CHLORIDE ER 20 MEQ TAB PO SCH (22:00)
[2020-04-20] MEDS ORDERED: ALBUTEROL 2.5 MG/3 ML NEBU IH PRN (08:36)
== END 2020-04-19 14:32 | disposition home or self-care (01) | DRG 292 ==
LOC: ED 13:06 → 3A 15:16 → 4A 04-18 22:14
PROVIDERS: ADMIT Internal Medicine; ATTEND Internal Medicine
DX: I11.0 Hypertensive heart disease with heart failure (principal); I16.1 Hypertensive emergency; I50.43 Acute on chronic combined systolic (congestive) and diastolic (congestive) heart failure; Z20.822 Contact with and (suspected) exposure to COVID-19; F17.200 Nicotine dependence, unspecified, uncomplicated; I42.9 Cardiomyopathy, unspecified; F14.90 Cocaine use, unspecified, uncomplicated; M54.5 Low back pain; I34.0 Nonrheumatic mitral (valve) insufficiency; W01.0XXA Fall on same level from slipping, tripping and stumbling without subsequent striking against object, initial encounter; R79.89 Other specified abnormal findings of blood chemistry; Y93.89 Activity, other specified; Y92.89 Other specified places as the place of occurrence of the external cause; Y99.8 Other external cause status; Z88.0 Allergy status to penicillin
CPT/HCPCS: 36415; 71045; 71275; 80048; 80053; 80076; 80307; 81001; 82140; 82550; 82553; 82728; 83036; 83615; 83735; 83880; 84145; 84484; 85025; 85027; 85379; 85610; 85730; 86140; 87040; 93005; 93306; 94640; 94644; 94760; 96365; 96375; G0378; J0456; J1940; J2185; J2270; J2405; J7512; Q9967; U0003